=== PATIENT | female | born 1935 | race Caucasian/White ===

== ENCOUNTER 2017-05-14 16:29 | Emergency (ER) | payer MEDICARE, BC ==
[~2017-05-14] VITALS: Ht 154.9 cm; Wt 46.3 kg
--- NOTE | 2017-05-14 16:29 | NUR ---
bbra from home for syncopal episode during dinner with family. nad noted. pt aao x2, rr even and unlabored, vss. pt placed in gown and monitor. pending md pedraza.
[2017-05-14] MEDS ORDERED: ONDANSETRON HCL/PF 4 MG/2 ML VIAL ONE (16:42)
--- NOTE | 2017-05-14 16:45 | NUR ---
family at bedside with patient at this time
[2017-05-14] MEDS ORDERED: ONDANSETRON HCL/PF 4 MG/2 ML VIAL IVP ONE (17:00)
[2017-05-14] MEDS ORDERED: IV NS 0.9% 500 ML BAG IV ONE (17:00)
[2017-05-14 17:02] LABS: BASOPHILS # (AUTO) 0.1 /CMM (0.0-0.2); EOSINOPHILS % (AUTO) 0.4 % (0.0-6.0); HEMATOCRIT 34 % (33-45); HEMOGLOBIN 11.1 g/dL (11.5-14.8); LYMPHOCYTES # (AUTO) 4.5 /CMM (0.8-4.8); LYMPHOCYTES % (AUTO) 45.3 % (20.0-44.0); MEAN CORPUSCULAR HEMOGLOBIN 30 PG (26.0-33.0); MEAN CORPUSCULAR HGB CONC 33 g/dl (31.0-36.0); MEAN CORPUSCULAR VOLUME 90 fL (82-100); MONOCYTES # (AUTO) 0.8 /CMM (0.1-1.30); MONOCYTES % (AUTO) 8.3 % (2.0-12.0); NEUTROPHILS # (AUTO) 4.5 /CMM (1.8-8.9); PLATELET COUNT (AUTO) 182 /CMM (150-450); RDW COEFFICIENT OF VARIATION 12.9 (11.5-15.0); RED BLOOD CELL COUNT(AUTO) 3.72 MIL/uL (4.0-5.2); WHITE BLOOD COUNT (AUTO) 9.9 K/uL (4.3-11.0)
[2017-05-14 17:14] LABS: CALCIUM, SERUM 8.5 mg/dL (8.5-10.1); CARBON DIOXIDE 24 mmol/L (21-32); CHLORIDE 107 mmol/L (98-107); CREATININE 1.8 mg/dL (0.6-1.3); GLUCOSE 78 mg/dL (74-106); POTASSIUM 3.1 mmol/L (3.5-5.1); SODIUM SERUM 142 mmol/L (136-145); UREA NITROGEN, BLOOD 33 mg/dL (7-18)
[2017-05-14 17:24] LABS: TROPONIN I < 0.017 ng/mL (0.00-0.056)
--- NOTE | 2017-05-14 17:26 | NUR ---
RECEIVED REPORT FROM MILAGROS OGLESBY FOR CYNDI
[2017-05-14] MEDS ORDERED: POTASSIUM CHLORIDE 20 MEQ TAB.PRT.SR PO ONE ×2 (17:27→17:30)
--- NOTE | 2017-05-14 17:50 | NUR ---
DR. DAILEY AT BEDSIDE SPEAKING TO PT REGARDING RESULTS
--- NOTE | 2017-05-14 18:00 | NUR ---
IV removed. Catheter intact and site benign. Pressure and 4x4 applied to site. No bleeding noted. Patient discharged to home in stable condition. Written and verbal after care instructions given. Patient verbalizes understanding of instruction. ambulatory with a steady gait. pt w/c per family request. pt instructed not to drive. pt verbalize understanding. pt accompanied by family
[2017-05-14 18:01] VITALS: BP 119/78
== END 2017-05-14 18:02 | disposition home or self-care (01) ==
LOC: ER 16:32
DX: R55 Syncope and collapse (principal); F03.90 Unspecified dementia, unspecified severity, without behavioral disturbance, psychotic disturbance, mood disturbance, and anxiety
CPT/HCPCS: 36415; 71010; 80048; 84484; 85025; 93005; 96361; 96374; 99285; A4606; G0480; J2405; J7040; Z7610